=== PATIENT | male | born 1995 | race Caucasian/White ===

== ENCOUNTER 2018-12-21 01:51 | Emergency (ER) | payer OTHER ==
[2018-12-21] MEDS: LORAZEPAM 0.5 MG TAB PO (02:56)
[2018-12-21] MEDS: LIDOCAINE 1% (MDV) 20 ML INJ SC (03:06)
== END 2018-12-21 04:12 | disposition home or self-care (01) ==
LOC: FTE 01:51
DX: T16.2XXA Foreign body in left ear, initial encounter (principal); H72.92 Unspecified perforation of tympanic membrane, left ear; X58.XXXA Exposure to other specified factors, initial encounter; Y92.9 Unspecified place or not applicable
CPT/HCPCS: 99283; Z7502